=== PATIENT | female | born 1960 | race Caucasian/White ===

== ENCOUNTER 2016-04-26 16:23 | Inpatient (IN) | payer OTHER ==
[~2016-04-26] VITALS: Ht 167.6 cm; Wt 86.2 kg
[2016-04-26 18:58] LABS: BASO # 0.1 x10^3/uL (0.0-0.2); BASO % 0 % (0-3); EOS % 2 % (0-3); HEMATOCRIT 35.5 % (36.0-47.0); HEMOGLOBIN 11.9 g/dL (12.0-15.5); LYMPH # 3.4 x10^3/uL (1.0-4.8); LYMPH % 20 % (24-48); MEAN CORPUSCULAR HEMOGLOBIN 29 pg (25-35); MEAN CORPUSCULAR HGB CONC 33 g/dL (31-37); MEAN CORPUSCULAR VOLUME 88 fL (79-100); MONO % 5 % (0-9); NEUT % 72 % (31-73); PLATELET COUNT 289 x10^3/uL (140-400); RED BLOOD COUNT 4.05 x10^6/uL (3.50-5.40); RED CELL DISTRIBUTION WIDTH 12.6 % (11.5-14.5); WHITE BLOOD COUNT 16.8 x10^3/uL (4.0-11.0)
[2016-04-26 19:14] LABS: CALCIUM 9.6 mg/dL (8.5-10.1); CREATININE 0.9 mg/dL (0.6-1.0); GFR 64.8; POTASSIUM 3.7 mmol/L (3.5-5.1)
[2016-04-26] MEDS: IV NORMAL SALINE 1000ML BAG 1,000 ML IV SCH (19:15)
[2016-04-26] MEDS: ONDANSETRON PF 4 MG/2 ML VIAL. IV PRN ×2 (19:16→23:32)
--- NOTE | 2016-04-26 19:17 | PHYS DOC ---
Past Medical History Past Medical History: No Pertinent History Past Surgical History: Hysterectomy, Other Additional Past Surgical Histo: abdominalplasty Alcohol Use: None Drug Use: None Adult General Chief Complaint Chief Complaint: RECTAL BLEED HPI HPI 55-year-old female with a recent history of colonoscopy where they removed several polyps presents with a 2 day history of bright red blood per rectum. The colonoscopy was 5 or 6 days ago she developed some bloating 2 days after that and then active bleeding 2 days after that. She states she is not having any abdominal pain at this time. She does state that she became a little short of breath and diaphoretic at work today. [] Review of Systems Review of Systems Constitutional: Denies fever or chills [] Eyes: Denies change in visual acuity, redness, or eye pain [] HENT: Denies nasal congestion or sore throat [] Respiratory: Per history of present illness [] Cardiovascular: No additional information not addressed in HPI [] GI: Per history of present illness [] : Denies dysuria or hematuria [] Musculoskeletal: Denies back pain or joint pain [] Integument: Denies rash or skin lesions [] Neurologic: Denies headache, focal weakness or sensory changes [] Endocrine: Denies polyuria or polydipsia [] Current Medications Current Medications Allergies Allergies Physical Exam Physical Exam Constitutional: Well developed, well nourished, no acute distress, non-toxic appearance. [] HENT: Normocephalic, atraumatic, bilateral external ears normal, oropharynx moist, no oral exudates, nose normal. [] Eyes: PERRLA, EOMI, conjunctiva normal, no discharge. [] Neck: Normal range of motion, no tenderness, supple, no stridor. [] Cardiovascular:Heart rate regular rhythm, no murmur [] Lungs & Thorax: Bilateral breath sounds clear to auscultation [] Abdomen: Bowel sounds normal, soft, no tenderness, no masses, no pulsatile masses, she had a large bloody bowel movement. [] Skin: Warm, dry, no erythema, no rash, significant pallor. [] Back: No tenderness, no CVA tenderness. [] Extremities: No tenderness, no cyanosis, no clubbing, ROM intact, no edema. [] Neurologic: Alert and oriented X 3, normal motor function, normal sensory function, no focal deficits noted. [] Psychologic: Anxious [] Current Patient Data Vital Signs Vital Signs Date Time Temp Pulse Resp B/P Pulse Ox O2 Delivery O2 Flow Rate FiO2 04/26/16 18:50 104 18 124/73 96 04/26/16 18:18 97.8 Room Air 97.8 Lab Values Laboratory Tests Test 04/26/16 18:30 White Blood Count 16.8x10^3/uL (4.0-11.0) H Red Blood Count 4.05x10^6/uL (3.50-5.40) Hemoglobin 11.9g/dL (12.0-15.5) L Hematocrit 35.5% (36.0-47.0) L Mean Corpuscular Volume 88fL (79-100) Mean Corpuscular Hemoglobin 29pg (25-35) Mean Corpuscular Hemoglobin Concent 33g/dL (31-37) Red Cell Distribution Width 12.6% (11.5-14.5) Platelet Count 289x10^3/uL (140-400) Neutrophils (%) (Auto) 72% (31-73) Lymphocytes (%) (Auto) 20% (24-48) L Monocytes (%) (Auto) 5% (0-9) Eosinophils (%) (Auto) 2% (0-3) Basophils (%) (Auto) 0% (0-3) Neutrophils # (Auto) 12.1x10^3uL (1.8-7.7) H Lymphocytes # (Auto) 3.4x10^3/uL (1.0-4.8) Monocytes # (Auto) 0.8x10^3/uL (0.0-1.1) Eosinophils # (Auto) 0.4x10^3/uL (0.0-0.7) Basophils # (Auto) 0.1x10^3/uL (0.0-0.2) Prothrombin Time 13.6SEC (11.7-14.0) Prothrombin Time INR 1.1 (0.8-1.1) Sodium Level 142mmol/L (136-145) Potassium Level 3.7mmol/L (3.5-5.1) Chloride Level 104mmol/L (98-107) Carbon Dioxide Level 25mmol/L (21-32) Anion Gap 13 (6-14) Blood Urea Nitrogen 13mg/dL (7-20) Creatinine 0.9mg/dL (0.6-1.0) Estimated GFR (Cockcroft-Gault) 64.8 Glucose Level 135mg/dL (70-99) H Calcium Level 9.6mg/dL (8.5-10.1) Laboratory Tests 04/26/16 18:30 Laboratory Tests 04/26/16 18:30 EKG EKG [] Radiology/Procedures Radiology/Procedures [] Course & Med Decision Making Course & Med Decision Making Pertinent Labs and Imaging studies reviewed. (See chart for details) [ED course: Evaluation reveals a 55-year-old female in no significant distress but she does appear pale. I witnessed a large bloody bowel movement. We'll consult GI. Patient will be admitted to the hospital. Patient is in agreement with this plan.] Dragon Disclaimer Dragon Disclaimer This electronic medical record was generated, in whole or in part, using a voice recognition dictation system. Departure Departure Impression: Primary Impression: GI bleed Disposition: 09 ADMITTED INPATIENT Admitting Physician: Mehdi Lindsey Condition: GUARDED Referrals: ROGER BECERRA MD (PCP) Scripts No Active Prescriptions or Reported Meds Problem Qualifiers Primary Impression: GI bleed GI bleed type/associated pathology: unspecified gastrointestinal hemorrhage type Qualified Code: K92.2 - Gastrointestinal hemorrhage, unspecified NANDO MCCLAIN DO Apr 26, 2016 19:17
[2016-04-26 19:34] LABS: INR 1.1 (0.8-1.1); PROTHROMBIN TIME PATIENT 13.6 SEC (11.7-14.0)
--- NOTE | 2016-04-26 20:58 | ACF ---
Admission Forms Criteria GASTROINTESTINAL BLEEDING Clinical Indications for Inpatient Care (Place 'X' for any and all applicable criteria): Ongoing inpatient care may be indicated for gastrointestinal bleeding with ANY ONE of the following (4)(20)(21)(22)(23)(24): [X]I. Active bleeding (eg, fresh voluminous blood in emesis or nasogastric aspirate, or per rectum) [ ]II. Hemodynamic instability [ ]III. Anticoagulation therapy or coagulopathy ((eg, advanced liver disease, irreversible anticoagulation) [ ]IV. Ischemic colitis (22) [ ]V. Endoscopy showing arterial bleeding, adherent clot, nonbleeding visible vessel, varices, flat red spots, ulcer size greater than 2 cm, or portal hypertensive gastropathy [ ]. High-risk low platelet count [ ]VII. Anemia requiring inpatient care as indicated by ANY ONE of the following a)[ ] Cognitive impairment b)[ ] Syncope c)[ ] Heart failure d)[ ] Chest pain e)[ ] Dyspnea f)[ ] Other findings suggesting inadequate perfusion (eg, peripheral or myocardial ischemia, end organ dysfunction) [ ]VIII. High-risk low platelet count [ ]IX. Suspected variceal cause of bleeding as indicated by ANY ONE of the following(27)(28): a)[ ] Known varices b)[ ] Hepatomegaly or splenomegaly c)[ ] Ascites d)[ ] Jaundice or scleral icterus e)[ ] History of liver disease (eg, cirrhosis) f)[ ] Physical findings of portal hypertension (eg, caput medusa) g)[ ] Comorbid disorder indicating risk for portal vein thrombosis (eg , abdominal surgery, sepsis, shock, exchange transfusion, prior umbilical vein catheterization) Extended stay may be needed until ALL of the following are present(20)(38)(47): [ ]a) Hemodynamic stability [ ]b) No evidence of active bleeding (eg, stable Hematocrit) [ ]c) Platelet count, prothrombin time, and partial thromboplastin time acceptable for next level of care [ ]d) Surgical or other acute intervention not needed [ ]e) Oral hydration and diet tolerated The original [employer] content created by Al[employer] has been revised. The portions of the content which have been revised are identified through the use of italic text or in bold, and Alfonso Romero has neither reviewed nor approved the modified material. All other unmodified content is copyright [facility]. Please see references footnoted in the original [facility] edition 2016 Admission Criteria Met?: Yes JULIANO RAHMAN. Apr 26, 2016 20:58
[2016-04-26 22:15] VITALS: BP 102/76
[2016-04-26] MEDS ORDERED: HYDROCODONE/APAP 5/325MG TABLET. PO PRN (23:30)
[2016-04-26] MEDS ORDERED: ALBUTEROL SULFATE 2.5 MG/3 ML NEBU. NEB PRN (23:30)
[2016-04-26] MEDS ORDERED: ONDANSETRON PF 4 MG/2 ML VIAL. IV PRN (23:30)
[2016-04-26] MEDS ORDERED: hydrALAZINE 20 MG/ML VIAL. IVP PRN (23:30)
[2016-04-27 03:00] VITALS: BP 102/65
[2016-04-27] MEDS: IV NORMAL SALINE 1000ML BAG 1,000 ML IV SCH ×2 (04:09→08:04)
[2016-04-27 04:46] LABS: BASO # 0.1 x10^3/uL (0.0-0.2); BASO % 0 % (0-3); EOS % 3 % (0-3); HEMATOCRIT 30.7 % (36.0-47.0); HEMOGLOBIN 10.4 g/dL (12.0-15.5); LYMPH # 4.1 x10^3/uL (1.0-4.8); LYMPH % 29 % (24-48); MEAN CORPUSCULAR HEMOGLOBIN 29 pg (25-35); MEAN CORPUSCULAR HGB CONC 34 g/dL (31-37); MEAN CORPUSCULAR VOLUME 87 fL (79-100); MONO % 5 % (0-9); NEUT % 63 % (31-73); PLATELET COUNT 245 x10^3/uL (140-400); RED BLOOD COUNT 3.53 x10^6/uL (3.50-5.40); RED CELL DISTRIBUTION WIDTH 12.9 % (11.5-14.5); WHITE BLOOD COUNT 14.1 x10^3/uL (4.0-11.0)
[2016-04-27 04:54] LABS: CALCIUM 8.7 mg/dL (8.5-10.1); CREATININE 0.9 mg/dL (0.6-1.0); GFR 64.8; POTASSIUM 3.8 mmol/L (3.5-5.1)
[2016-04-27 07:00] VITALS: BP 92/50
--- NOTE | 2016-04-27 08:40 | PDOC2 ---
GI CONSULT Reason For Consult: GI Bleed HPI: HPI: 55 y/o female admitted through the ER w/ hematochezia. Recent colonoscopy as outpt (on 04/19/16) w/ Dr. Vences revealed: two 3-4mm polyps in the mid transverse colon and cecum, 25mm polyp in mid sigmoid colon (?villous adenoma - removed w/ hot snare, three hemostatic clips placed w/ resolution of bleeding), and internal hemorrhoids. Because of large polyp removal w/ clip placement, she kept to a liquid diet for about a day after her procedure before gradually advancing her diet. On 04/24, she noted significant abd bloating. She passed stool for the first time since colonoscopy and also passed a significant amount of bright red blood which continued throughout the night. She called Dr. Vences and was advised to again limit her diet which she did for another day. She did this and bleeding slowed/stopped. On 04/26, she ate some cream of rice in the morning. On that day, she started to "feel really funky" w/ sweats and some SOA, and bleeding started again. She had a few episodes of passing bright red blood, called Dr. Vences again, and was advised to come to the ER which another large blood bowel movement was witnessed. Bleeding has slowed since admission but she feels if she got out of bed and attempted to pass another stool, it would be bloody. Bloating comes and goes but it not as severe as it was over the weekend. Denies abd pain. Has had some nausea. Hgb was 14.9 in 01/2015. Today it is 10.4 (from 11.9 in the ER). KUB report is pending. For dysphagia, dyspepsia, and abnormal esophagram, EGD on 03/06/15 showed benign appearing esophageal stricture, reflux esophagitis (partly healed grade IV), gastric deformity (positive for H. pylori), and duodenal deformity suggestive of prior PUD. She was advised to take PPI which she did for awhile but stopped after intentional weight loss earlier this year (and resolution of upper GI symptoms). PMH: PMH: allergic rhinitis, GERD, abdominoplasty, hysterectomy (partial) FH: Family History: Cancer (lung) Social History: Smoke: Quit ALCOHOL: occassional Drugs: None ROS: GEN: sweats HEENT: Denies blurred vision, sore throat CV: Denies chest pain RESP: SOA GI: Per HPI : Denies hematuria, dysuria ENDO: intentional weight loss NEURO: "feels funky" MSK: Denies weakness, joint pain/swelling SKIN: Denies jaundice, pruritus VItals: Vitals: Vital Signs Date Time Temp Pulse Resp B/P Pulse Ox O2 Delivery O2 Flow Rate FiO2 04/27/16 07:00 98.6 71 18 92/50 94 Room Air 98.6 Labs: Labs: Laboratory Tests Test 04/26/16 18:30 04/27/16 03:00 White Blood Count 16.8x10^3/uL (4.0-11.0) 14.1x10^3/uL (4.0-11.0) Red Blood Count 4.05x10^6/uL (3.50-5.40) 3.53x10^6/uL (3.50-5.40) Hemoglobin 11.9g/dL (12.0-15.5) 10.4g/dL (12.0-15.5) Hematocrit 35.5% (36.0-47.0) 30.7% (36.0-47.0) Mean Corpuscular Volume 88fL (79-100) 87fL (79-100) Mean Corpuscular Hemoglobin 29pg (25-35) 29pg (25-35) Mean Corpuscular Hemoglobin Concent 33g/dL (31-37) 34g/dL (31-37) Red Cell Distribution Width 12.6% (11.5-14.5) 12.9% (11.5-14.5) Platelet Count 289x10^3/uL (140-400) 245x10^3/uL (140-400) Neutrophils (%) (Auto) 72% (31-73) 63% (31-73) Lymphocytes (%) (Auto) 20% (24-48) 29% (24-48) Monocytes (%) (Auto) 5% (0-9) 5% (0-9) Eosinophils (%) (Auto) 2% (0-3) 3% (0-3) Basophils (%) (Auto) 0% (0-3) 0% (0-3) Neutrophils # (Auto) 12.1x10^3uL (1.8-7.7) 8.8x10^3uL (1.8-7.7) Lymphocytes # (Auto) 3.4x10^3/uL (1.0-4.8) 4.1x10^3/uL (1.0-4.8) Monocytes # (Auto) 0.8x10^3/uL (0.0-1.1) 0.8x10^3/uL (0.0-1.1) Eosinophils # (Auto) 0.4x10^3/uL (0.0-0.7) 0.4x10^3/uL (0.0-0.7) Basophils # (Auto) 0.1x10^3/uL (0.0-0.2) 0.1x10^3/uL (0.0-0.2) Prothrombin Time 13.6SEC (11.7-14.0) Prothromb Time International Ratio 1.1 (0.8-1.1) Sodium Level 142mmol/L (136-145) 139mmol/L (136-145) Potassium Level 3.7mmol/L (3.5-5.1) 3.8mmol/L (3.5-5.1) Chloride Level 104mmol/L (98-107) 105mmol/L (98-107) Carbon Dioxide Level 25mmol/L (21-32) 27mmol/L (21-32) Anion Gap 13 (6-14) 7 (6-14) Blood Urea Nitrogen 13mg/dL (7-20) 16mg/dL (7-20) Creatinine 0.9mg/dL (0.6-1.0) 0.9mg/dL (0.6-1.0) Estimated GFR (Cockcroft-Gault) 64.8 64.8 Glucose Level 135mg/dL (70-99) 102mg/dL (70-99) Calcium Level 9.6mg/dL (8.5-10.1) 8.7mg/dL (8.5-10.1) Allergies: Coded Allergies: No Known Drug Allergies (Unverified , 04/26/16) Medications: Current Medications Medications (Trade) Dose Ordered Sig/Sharon Route PRN Reason Start Time Stop Time Status Last Admin Dose Admin Ondansetron HCl 4 mg 4 mg PRN Q8HRS PRN IV NAUSEA/VOMITING 04/26/16 19:15 04/26/16 23:33 DC 04/26/16 23:32 Sodium Chloride (Iv Sodium Chloride 0.9% 1000ml Bag) 1,000 ml @ 125 mls/hr Q8H IV 04/26/16 19:30 04/27/16 19:29 04/27/16 08:04 Imaging: Imaging: KUB PENDING PE: GEN: NAD, laying in bed HEENT: Atraumatic, PERRL LUNGS: CTAB HEART: RRR ABD: NABS, S/ND/NT EXTREMITY: No edema SKIN: No rashes, no jaundice NEURO/PSYCH: A & O 3 A/P: A/P: Hematochezia s/p large polypectomy w/ clips placed 04/19/16 -abd bloating, nausea -Hgb 10.4 (from 11.9) -- Colonoscopy this afternoon ~4:30 after prep. Orders in, d/w GI lab. DAVID BARLOW Apr 27, 2016 08:40
--- NOTE | 2016-04-27 08:45 | RAD ---
Indication: GI bleed. Time of exam 1910 hours. The bowel gas pattern is nonobstructed. There is moderate stool in the right colon. Small bowel is nondilated. A metallic density overlies the midline of the pelvis in the region of the rectum consistent with a foreign body, indeterminate. Impression: No acute feature seen. There is a foreign body located midline of the pelvis. Clinical correlation is recommended.
[2016-04-27] MEDS ORDERED: POLYETHYLENE GLYCOL 3350 238 GM POWDER PO ONE (09:00)
[2016-04-27] MEDS ORDERED: BISACODYL 5 MG TABLET.DR. PO PRN (09:00)
[2016-04-27] MEDS ORDERED: MAGNESIUM CITRATE 296 ML SOLUTION. PO ONE (09:00)
--- NOTE | 2016-04-27 09:43 | PDOC1 ---
History and Physical Past Medical History Past Medical History GERD, abdominoplasty, Family History Family History LUNG CANCER Social History Smoke: Quit ALCOHOL: occassional Drugs: None Current Problem List Problem List Problems Medical Problems: (1) GI bleed Status: Acute Current Medications Current Medications Current Medications Medications (Trade) Dose Ordered Sig/Sharon Start Time Stop Time Status Last Admin Dose Admin Acetaminophen (Tylenol) 325 mg PRN Q6HRS PRN 04/26/16 23:30 Acetaminophen/ Hydrocodone Bitart (Lortab 5/325) 1 tab PRN Q6HRS PRN 04/26/16 23:30 Albuterol Sulfate (Ventolin Neb Soln) 2.5 mg PRN Q4HRS PRN 04/26/16 23:30 Bisacodyl (Dulcolax Tab) 10 mg PRN DAILY PRN 04/27/16 09:00 Hydralazine HCl (Apresoline) 10 mg PRN Q4HRS PRN 04/26/16 23:30 Magnesium Citrate (Citroma) 296 ml 1X ONCE 04/27/16 09:00 04/27/16 09:06 DC 04/27/16 09:17 296 ML Ondansetron HCl (Zofran) 4 mg PRN Q8HRS PRN 04/26/16 23:30 Ondansetron HCl 4 mg 4 mg PRN Q8HRS PRN 04/26/16 19:15 04/26/16 23:33 DC 04/26/16 23:32 4 MG Polyethylene Glycol (miraLAX Powder BULK BOTTLE) 238 gm 1X ONCE 04/27/16 09:00 04/27/16 09:06 DC Sodium Chloride (Iv Sodium Chloride 0.9% 1000ml Bag) 1,000 ml @ 125 mls/hr Q8H 04/26/16 19:30 04/27/16 19:29 04/27/16 08:04 125 MLS/HR Allergies Allergies Allergies Coded Allergies Type Severity Reaction Last Updated Verified No Known Drug Allergies 04/26/16 No ROS Review of System CONSTITUTIONAL: No fever or chills EYES: No recent changes SKIN: No rash or itching CARDIOVASCULAR: No chest pain, syncope, palpitations, or edema RESPIRATORY: No SOB or cough GASTROINTESTINAL: No nausea, vomiting or abdominal pain BUT HEMATOCHEZIA NEUROLOGICAL: No headaches or weakness ENDOCRINE: No cold or heat intolerance GENITOURINARY: No urgency or frequency of urination MUSCULOSKELETAL: No back pain or joint pain LYMPHATICS: No enlarged lymph nodes PSYCHIATRIC: No anxiety or depression Physical Exam Physical Exam GEN.: No apparent distress. Alert and oriented. HEENT: Head is normocephalic, atraumatic NECK: Supple. LUNGS: Clear to auscultation. HEART: RRR, S1, S2 present. Peripheral pulses intact ABDOMEN: Soft, nontender. Positive bowel sounds. EXTREMITIES: Without any cyanosis. NEUROLOGIC: Normal speech, normal tone PSYCHIATRIC: Normal affect, normal mood. SKIN: No ulcerations Vitals Vitals Vital Signs Date Time Temp Pulse Resp B/P Pulse Ox O2 Delivery O2 Flow Rate FiO2 04/27/16 08:34 98 Room Air 04/27/16 07:00 98.6 71 18 92/50 98.6 Labs Labs Laboratory Tests Test 04/26/16 18:30 04/27/16 03:00 White Blood Count 16.8x10^3/uL (4.0-11.0) 14.1x10^3/uL (4.0-11.0) Red Blood Count 4.05x10^6/uL (3.50-5.40) 3.53x10^6/uL (3.50-5.40) Hemoglobin 11.9g/dL (12.0-15.5) 10.4g/dL (12.0-15.5) Hematocrit 35.5% (36.0-47.0) 30.7% (36.0-47.0) Mean Corpuscular Volume 88fL (79-100) 87fL (79-100) Mean Corpuscular Hemoglobin 29pg (25-35) 29pg (25-35) Mean Corpuscular Hemoglobin Concent 33g/dL (31-37) 34g/dL (31-37) Red Cell Distribution Width 12.6% (11.5-14.5) 12.9% (11.5-14.5) Platelet Count 289x10^3/uL (140-400) 245x10^3/uL (140-400) Neutrophils (%) (Auto) 72% (31-73) 63% (31-73) Lymphocytes (%) (Auto) 20% (24-48) 29% (24-48) Monocytes (%) (Auto) 5% (0-9) 5% (0-9) Eosinophils (%) (Auto) 2% (0-3) 3% (0-3) Basophils (%) (Auto) 0% (0-3) 0% (0-3) Neutrophils # (Auto) 12.1x10^3uL (1.8-7.7) 8.8x10^3uL (1.8-7.7) Lymphocytes # (Auto) 3.4x10^3/uL (1.0-4.8) 4.1x10^3/uL (1.0-4.8) Monocytes # (Auto) 0.8x10^3/uL (0.0-1.1) 0.8x10^3/uL (0.0-1.1) Eosinophils # (Auto) 0.4x10^3/uL (0.0-0.7) 0.4x10^3/uL (0.0-0.7) Basophils # (Auto) 0.1x10^3/uL (0.0-0.2) 0.1x10^3/uL (0.0-0.2) Prothrombin Time 13.6SEC (11.7-14.0) Prothromb Time International Ratio 1.1 (0.8-1.1) Sodium Level 142mmol/L (136-145) 139mmol/L (136-145) Potassium Level 3.7mmol/L (3.5-5.1) 3.8mmol/L (3.5-5.1) Chloride Level 104mmol/L (98-107) 105mmol/L (98-107) Carbon Dioxide Level 25mmol/L (21-32) 27mmol/L (21-32) Anion Gap 13 (6-14) 7 (6-14) Blood Urea Nitrogen 13mg/dL (7-20) 16mg/dL (7-20) Creatinine 0.9mg/dL (0.6-1.0) 0.9mg/dL (0.6-1.0) Estimated GFR (Cockcroft-Gault) 64.8 64.8 Glucose Level 135mg/dL (70-99) 102mg/dL (70-99) Calcium Level 9.6mg/dL (8.5-10.1) 8.7mg/dL (8.5-10.1) Laboratory Tests Test 04/26/16 18:30 04/27/16 03:00 White Blood Count 16.8x10^3/uL (4.0-11.0) 14.1x10^3/uL (4.0-11.0) Red Blood Count 4.05x10^6/uL (3.50-5.40) 3.53x10^6/uL (3.50-5.40) Hemoglobin 11.9g/dL (12.0-15.5) 10.4g/dL (12.0-15.5) Hematocrit 35.5% (36.0-47.0) 30.7% (36.0-47.0) Mean Corpuscular Volume 88fL (79-100) 87fL (79-100) Mean Corpuscular Hemoglobin 29pg (25-35) 29pg (25-35) Mean Corpuscular Hemoglobin Concent 33g/dL (31-37) 34g/dL (31-37) Red Cell Distribution Width 12.6% (11.5-14.5) 12.9% (11.5-14.5) Platelet Count 289x10^3/uL (140-400) 245x10^3/uL (140-400) Neutrophils (%) (Auto) 72% (31-73) 63% (31-73) Lymphocytes (%) (Auto) 20% (24-48) 29% (24-48) Monocytes (%) (Auto) 5% (0-9) 5% (0-9) Eosinophils (%) (Auto) 2% (0-3) 3% (0-3) Basophils (%) (Auto) 0% (0-3) 0% (0-3) Neutrophils # (Auto) 12.1x10^3uL (1.8-7.7) 8.8x10^3uL (1.8-7.7) Lymphocytes # (Auto) 3.4x10^3/uL (1.0-4.8) 4.1x10^3/uL (1.0-4.8) Monocytes # (Auto) 0.8x10^3/uL (0.0-1.1) 0.8x10^3/uL (0.0-1.1) Eosinophils # (Auto) 0.4x10^3/uL (0.0-0.7) 0.4x10^3/uL (0.0-0.7) Basophils # (Auto) 0.1x10^3/uL (0.0-0.2) 0.1x10^3/uL (0.0-0.2) Prothrombin Time 13.6SEC (11.7-14.0) Prothromb Time International Ratio 1.1 (0.8-1.1) Sodium Level 142mmol/L (136-145) 139mmol/L (136-145) Potassium Level 3.7mmol/L (3.5-5.1) 3.8mmol/L (3.5-5.1) Chloride Level 104mmol/L (98-107) 105mmol/L (98-107) Carbon Dioxide Level 25mmol/L (21-32) 27mmol/L (21-32) Anion Gap 13 (6-14) 7 (6-14) Blood Urea Nitrogen 13mg/dL (7-20) 16mg/dL (7-20) Creatinine 0.9mg/dL (0.6-1.0) 0.9mg/dL (0.6-1.0) Estimated GFR (Cockcroft-Gault) 64.8 64.8 Glucose Level 135mg/dL (70-99) 102mg/dL (70-99) Calcium Level 9.6mg/dL (8.5-10.1) 8.7mg/dL (8.5-10.1) VTE Prophylaxis Ordered VTE Prophylaxis Devices: Yes VTE Pharmacological Prophylaxi: No NISHANT REBOLLAR MD Apr 27, 2016 09:42
[2016-04-27 11:00] VITALS: BP 111/74
[2016-04-27 15:00] VITALS: BP 104/60
[2016-04-27] MEDS ORDERED: IV RINGERS,LACTATED 1000ML 1,000 ML IV ONE (16:00)
[2016-04-27] MEDS ORDERED: FENTANYL PF 100 MCG/2 ML VIAL. ONE ×2 (16:49→17:01)
[2016-04-27] MEDS ORDERED: MIDAZOLAM HCL/PF 5 MG/5 ML VIAL ONE ×2 (16:49→17:00)
[2016-04-27] MEDS ORDERED: MIDAZOLAM HCL/PF 5 MG/5 ML VIAL IV ONE ×8 (16:52→17:10)
[2016-04-27] MEDS ORDERED: FENTANYL PF 100 MCG/2 ML VIAL. IV ONE ×3 (16:54→17:04)
--- NOTE | 2016-04-27 17:36 | HP ---
ADMIT DATE: 04/26/2016 CHIEF COMPLAINT: GI bleeding. HISTORY OF PRESENT ILLNESS: A 55-year-old female patient with recent history of colonoscopy, presented to the ER with complaints of hematochezia. The patient had a colonoscopy by Dr. Vences on April 19. At that time, he had mid transverse colon polyps removed for questionable villous adenoma and also she was diagnosed internal hemorrhoids. The patient has been noticing some bright red blood; however, yesterday, she called Dr. Vences who made her to come to the ER. The patient denies any abdominal pain, nausea or vomiting, and currently, she is in preparation for colonoscopy. Her recent hemoglobin was 10.4, which has been dropped from 14.9. PAST MEDICAL HISTORY, REVIEW OF SYSTEMS, AND PHYSICAL EXAMINATION: Please see my electronic H and P. LABORATORY FINDINGS: WBC 16.8, hemoglobin is 11.9, MCV is 88, and platelets are 289. Chemistry: Sodium 142, potassium is 3.7, chloride is 104, carbon dioxide 25, anion gap is 13, creatinine is 0.9. INR is 1.1. IMAGING STUDIES: KUB, no acute clinical seen. ASSESSMENT: Hematochezia with recent polypectomy and clips placed on April 19. PLAN: 1. Monitor hemoglobin, current hemoglobin is 10.4, dropped from 11.9. Continue mild IV hydration. Keep her n.p.o. and Dr. Vences has been consulted and anticipated colonoscopy this evening. 2. P.r.n. Zofran for nausea. NISHANT REBOLLAR MD DR: BELKIS/melonie JOB#: [id number] / [id number] JATINDER
[2016-04-27] MEDS ORDERED: EPINEPHRINE 1 MG/10 ML DISP.SYRIN. ONE (17:37)
--- NOTE | 2016-04-27 17:37 | PDOC4 ---
PROCEDURE Procedure Colonoscopy/epi injection/hemostatic clipping. Indcation: delayed bleeding post-polypectomy (~1 week). Meds: Fentanyl 125mcg iv, versed 8mg iv, all in divided doses. Findings: KATARZYNA: normal. Scope advanced to cecum. Mucosa normal. No diverticular disease. Dilute blood throughout, suctioned/washed. In distal sigmoid, broad stalk identified with apical ulcer and one clip remaining from the 3 placed last week. No clot or active bleeding. Stalk injected with 1 cc epi and 2 clips placed on the stalk. Just distal to the stalk were 2 dislodged clips in the lumen. Retroflex showed internal hemorrhoids. Tolerated well. IMP: Probable post-polypectomy bleed, s/p epi/clipping. Internal hemorrhoids. REC: Clears OK Observe for recurrent bleeding. AM hemoglobin. If meaningful rebleeding, IR to see re: embolize. Thanks. DIANNA FIERRO MD Apr 27, 2016 17:37
[2016-04-27 19:16] VITALS: BP 99/51
[2016-04-27] MEDS: ACETAMINOPHEN 325 MG TABLET. PO PRN (22:02)
[2016-04-27 23:00] VITALS: BP 97/67
[2016-04-28 03:00] VITALS: BP 92/64
[2016-04-28] MEDS: ACETAMINOPHEN 325 MG TABLET. PO PRN (04:08)
[2016-04-28 04:52] LABS: HEMATOCRIT 27.2 % (36.0-47.0); RED BLOOD COUNT 3.08 x10^6/uL (3.50-5.40); RED CELL DISTRIBUTION WIDTH 12.8 % (11.5-14.5); WHITE BLOOD COUNT 8.4 x10^3/uL (4.0-11.0)
[2016-04-28 05:43] LABS: CALCIUM 8.3 mg/dL (8.5-10.1); CREATININE 0.7 mg/dL (0.6-1.0); GFR 86.6; POTASSIUM 3.7 mmol/L (3.5-5.1)
[2016-04-28 07:00] VITALS: BP 130/79
--- NOTE | 2016-04-28 10:37 | PDOC ---
PROGRESS NOTES Chief Complaint Chief Complaint Probable post-polypectomy bleed, s/p epi/clipping. Internal hemorrhoids. Plan Monitor hemoglobin advance diet anticipated DC today Vitals Vitals Vital Signs Date Time Temp Pulse Resp B/P Pulse Ox O2 Delivery O2 Flow Rate FiO2 04/28/16 08:00 Room Air 04/28/16 07:00 98.5 75 18 130/79 97 98.5 04/27/16 17:32 5 Physical Exam General: Alert, Oriented X3 Heart: Normal S1, Normal S2 Lungs: Clear Abdomen: Normal bowel sounds, Soft Labs LABS Laboratory Tests Test 04/28/16 03:24 White Blood Count 8.4x10^3/uL (4.0-11.0) Red Blood Count 3.08x10^6/uL (3.50-5.40) Hemoglobin 9.0g/dL (12.0-15.5) Hematocrit 27.2% (36.0-47.0) Mean Corpuscular Volume 88fL (79-100) Mean Corpuscular Hemoglobin 29pg (25-35) Mean Corpuscular Hemoglobin Concent 33g/dL (31-37) Red Cell Distribution Width 12.8% (11.5-14.5) Platelet Count 206x10^3/uL (140-400) Sodium Level 143mmol/L (136-145) Potassium Level 3.7mmol/L (3.5-5.1) Chloride Level 109mmol/L (98-107) Carbon Dioxide Level 27mmol/L (21-32) Anion Gap 7 (6-14) Blood Urea Nitrogen 9mg/dL (7-20) Creatinine 0.7mg/dL (0.6-1.0) Estimated GFR (Cockcroft-Gault) 86.6 Glucose Level 99mg/dL (70-99) Calcium Level 8.3mg/dL (8.5-10.1) Assessment and Plan Assessmemt and Plan Problems Medical Problems: (1) GI bleed Status: Acute Problems: Comment Review of Relevant I have reviewed the following items fay (where applicable) has been applied. Labs Laboratory Tests Test 04/26/16 18:30 04/27/16 03:00 04/28/16 03:24 White Blood Count 16.8x10^3/uL (4.0-11.0) 14.1x10^3/uL (4.0-11.0) 8.4x10^3/uL (4.0-11.0) Red Blood Count 4.05x10^6/uL (3.50-5.40) 3.53x10^6/uL (3.50-5.40) 3.08x10^6/uL (3.50-5.40) Hemoglobin 11.9g/dL (12.0-15.5) 10.4g/dL (12.0-15.5) 9.0g/dL (12.0-15.5) Hematocrit 35.5% (36.0-47.0) 30.7% (36.0-47.0) 27.2% (36.0-47.0) Mean Corpuscular Volume 88fL (79-100) 87fL (79-100) 88fL (79-100) Mean Corpuscular Hemoglobin 29pg (25-35) 29pg (25-35) 29pg (25-35) Mean Corpuscular Hemoglobin Concent 33g/dL (31-37) 34g/dL (31-37) 33g/dL (31-37) Red Cell Distribution Width 12.6% (11.5-14.5) 12.9% (11.5-14.5) 12.8% (11.5-14.5) Platelet Count 289x10^3/uL (140-400) 245x10^3/uL (140-400) 206x10^3/uL (140-400) Neutrophils (%) (Auto) 72% (31-73) 63% (31-73) Lymphocytes (%) (Auto) 20% (24-48) 29% (24-48) Monocytes (%) (Auto) 5% (0-9) 5% (0-9) Eosinophils (%) (Auto) 2% (0-3) 3% (0-3) Basophils (%) (Auto) 0% (0-3) 0% (0-3) Neutrophils # (Auto) 12.1x10^3uL (1.8-7.7) 8.8x10^3uL (1.8-7.7) Lymphocytes # (Auto) 3.4x10^3/uL (1.0-4.8) 4.1x10^3/uL (1.0-4.8) Monocytes # (Auto) 0.8x10^3/uL (0.0-1.1) 0.8x10^3/uL (0.0-1.1) Eosinophils # (Auto) 0.4x10^3/uL (0.0-0.7) 0.4x10^3/uL (0.0-0.7) Basophils # (Auto) 0.1x10^3/uL (0.0-0.2) 0.1x10^3/uL (0.0-0.2) Prothrombin Time 13.6SEC (11.7-14.0) Prothromb Time International Ratio 1.1 (0.8-1.1) Sodium Level 142mmol/L (136-145) 139mmol/L (136-145) 143mmol/L (136-145) Potassium Level 3.7mmol/L (3.5-5.1) 3.8mmol/L (3.5-5.1) 3.7mmol/L (3.5-5.1) Chloride Level 104mmol/L (98-107) 105mmol/L (98-107) 109mmol/L (98-107) Carbon Dioxide Level 25mmol/L (21-32) 27mmol/L (21-32) 27mmol/L (21-32) Anion Gap 13 (6-14) 7 (6-14) 7 (6-14) Blood Urea Nitrogen 13mg/dL (7-20) 16mg/dL (7-20) 9mg/dL (7-20) Creatinine 0.9mg/dL (0.6-1.0) 0.9mg/dL (0.6-1.0) 0.7mg/dL (0.6-1.0) Estimated GFR (Cockcroft-Gault) 64.8 64.8 86.6 Glucose Level 135mg/dL (70-99) 102mg/dL (70-99) 99mg/dL (70-99) Calcium Level 9.6mg/dL (8.5-10.1) 8.7mg/dL (8.5-10.1) 8.3mg/dL (8.5-10.1) Laboratory Tests Test 04/28/16 03:24 White Blood Count 8.4x10^3/uL (4.0-11.0) Red Blood Count 3.08x10^6/uL (3.50-5.40) Hemoglobin 9.0g/dL (12.0-15.5) Hematocrit 27.2% (36.0-47.0) Mean Corpuscular Volume 88fL (79-100) Mean Corpuscular Hemoglobin 29pg (25-35) Mean Corpuscular Hemoglobin Concent 33g/dL (31-37) Red Cell Distribution Width 12.8% (11.5-14.5) Platelet Count 206x10^3/uL (140-400) Sodium Level 143mmol/L (136-145) Potassium Level 3.7mmol/L (3.5-5.1) Chloride Level 109mmol/L (98-107) Carbon Dioxide Level 27mmol/L (21-32) Anion Gap 7 (6-14) Blood Urea Nitrogen 9mg/dL (7-20) Creatinine 0.7mg/dL (0.6-1.0) Estimated GFR (Cockcroft-Gault) 86.6 Glucose Level 99mg/dL (70-99) Calcium Level 8.3mg/dL (8.5-10.1) Medications Current Medications Ondansetron HCl 4 mg 4 mg PRN Q8HRS PRN IV NAUSEA/VOMITING Last administered on 04/26/16 23:32; Start 04/26/16 at 19:15; Stop 04/26/16 at 23:33; Status DC Sodium Chloride (Iv Sodium Chloride 0.9% 1000ml Bag) 1,000 ml @ 125 mls/hr Q8H IV Last administered on 04/27/16 08:04; Start 04/26/16 at 19:30; Stop at 19:29; Status DC Acetaminophen (Tylenol) 325 mg PRN Q6HRS PRN PO MILD PAIN / TEMP Last administered on 04/28/16 04:08; Start 04/26/16 at 23:30 Acetaminophen/ Hydrocodone Bitart (Lortab 5/325) 1 tab PRN Q6HRS PRN PO MODERATE TO SEVERE PAIN; Start 04/26/16 at 23:30 Hydralazine HCl (Apresoline) 10 mg PRN Q4HRS PRN IVP ELEVATED BP, SEE COMMENTS ; Start 04/26/16 at 23:30 Ondansetron HCl (Zofran) 4 mg PRN Q8HRS PRN IV NAUSEA/VOMITING Last administered on 04/27/16 22:00; Start 04/26/16 at 23:30 Albuterol Sulfate (Ventolin Neb Soln) 2.5 mg PRN Q4HRS PRN NEB SHORTNESS OF BREATH; Start 04/26/16 at 23:30 Magnesium Citrate (Citroma) 296 ml 1X ONCE PO Last administered on 04/27/16 09:17; Start 04/27/16 at 09:00; Stop 04/27/16 at 09:06; Status DC Polyethylene Glycol (miraLAX Powder BULK BOTTLE) 238 gm 1X ONCE PO Last administered on 04/27/16 11:05; Start 04/27/16 at 09:00; Stop 04/27/16 at 09:06 ; Status DC Bisacodyl 10 mg 10 mg PRN DAILY PRN PO CONSTIPATION Last administered on 11:06; Start 04/27/16 at 09:00 Lactated Ringer's (Iv Lactated Ringers) 1,000 ml @ 75 mls/hr 1X ONCE IV Last administered on 04/27/16 16:08; Start 04/27/16 at 16:00; Stop 04/28/16 at 05:19 ; Status DC Midazolam HCl (Versed) 5 mg STK-MED ONCE .ROUTE ; Start 04/27/16 at 16:49; Stop 04/27/16 at 16:50; Status DC Fentanyl Citrate (Fentanyl 2ml Vial) 100 mcg STK-MED ONCE .ROUTE Last administered on 04/27/16 16:52; Start 04/27/16 at 16:49; Stop 04/27/16 at 16:50 ; Status DC Midazolam HCl (Versed) 5 mg STK-MED ONCE .ROUTE ; Start 04/27/16 at 17:00; Stop 04/27/16 at 17:01; Status DC Fentanyl Citrate (Fentanyl 2ml Vial) 100 mcg STK-MED ONCE .ROUTE ; Start at 17:01; Stop 04/27/16 at 17:02; Status DC Midazolam HCl (Versed) 5 mg STK-MED ONCE IV Last administered on 04/27/16 16: 52; Start 04/27/16 at 16:52; Stop 04/27/16 at 17:17; Status DC Midazolam HCl (Versed) 5 mg STK-MED ONCE IV Last administered on 04/27/16 16: 54; Start 04/27/16 at 16:54; Stop 04/27/16 at 17:17; Status DC Fentanyl Citrate (Fentanyl 2ml Vial) 100 mcg STK-MED ONCE IV Last administered on 04/27/16 16:54; Start 04/27/16 at 16:54; Stop 04/27/16 at 17:17; Status DC Midazolam HCl (Versed) 5 mg STK-MED ONCE IV Last administered on 04/27/16 16: 55; Start 04/27/16 at 16:55; Stop 04/27/16 at 17:17; Status DC Midazolam HCl (Versed) 5 mg STK-MED ONCE IV Last administered on 04/27/16 16: 56; Start 04/27/16 at 16:56; Stop 04/27/16 at 17:17; Status DC Fentanyl Citrate (Fentanyl 2ml Vial) 100 mcg STK-MED ONCE IV Last administered on 04/27/16 16:58; Start 04/27/16 at 16:58; Stop 04/27/16 at 17:17; Status DC Midazolam HCl (Versed) 5 mg STK-MED ONCE IV Last administered on 04/27/16 16: 58; Start 04/27/16 at 16:58; Stop 04/27/16 at 17:17; Status DC Fentanyl Citrate (Fentanyl 2ml Vial) 100 mcg STK-MED ONCE IV Last administered on 04/27/16 17:04; Start 04/27/16 at 17:04; Stop 04/27/16 at 17:17; Status DC Midazolam HCl (Versed) 5 mg STK-MED ONCE IV Last administered on 04/27/16 17: 04; Start 04/27/16 at 17:04; Stop 04/27/16 at 17:17; Status DC Midazolam HCl (Versed) 5 mg STK-MED ONCE IV Last administered on 04/27/16 17: 08; Start 04/27/16 at 17:08; Stop 04/27/16 at 17:17; Status DC Midazolam HCl (Versed) 5 mg STK-MED ONCE IV Last administered on 04/27/16t 17: 10; Start 04/27/16 at 17:10; Stop 04/27/16 at 17:17; Status DC Epinephrine HCl 1 mg STK-MED ONCE .ROUTE ; Start 04/27/16 at 17:37; Stop at 17:38; Status DC Vitals/I & O Vital Sign - Last 24 Hours 04/27/16 04/27/16 04/27/16 04/27/16 11:00 15:00 15:53 16:09 Temp 98.5 97.5 97.4 98.5 97.5 97.4 Pulse 85 88 84 Resp 18 18 20 B/P 111/74 104/60 Pulse Ox 99 99 100 O2 Delivery Room Air Room Air Room Air 04/27/16 04/27/16 04/27/16 04/27/16 16:52 16:54 16:55 16:57 Pulse 86 84 86 94 Resp 18 20 18 18 Pulse Ox 100 99 100 100 O2 Delivery Nasal Cannula Nasal Cannula Nasal Cannula Nasal Cannula O2 Flow Rate 4.0 4.0 4.0 4.0 04/27/16 04/27/16 04/27/16 04/27/16 16:59 17:11 17:15 17:19 Pulse 82 80 80 82 Resp 18 18 18 18 Pulse Ox 100 100 100 100 O2 Delivery Nasal Cannula Nasal Cannula Nasal Cannula O2 Flow Rate 4.0 4.0 4.0 4.0 04/27/16 04/27/16 04/27/16 04/28/16 17:32 19:16 20:00 03:00 Temp 98.5 98.8 98.5 98.8 Pulse 81 82 94 Resp 18 18 18 B/P 108/54 99/51 92/64 Pulse Ox 100 95 98 O2 Delivery Nasal Cannula Room Air Room Air Room Air O2 Flow Rate 5 04/28/16 04/28/16 07:00 08:00 Temp 98.5 98.5 Pulse 75 Resp 18 B/P 130/79 Pulse Ox 97 O2 Delivery Room Air Intake and Output 104/27/16 04/28/16 15:00 23:00 07:00 Intake Total 3900 ml 120 ml Balance 3900 ml 120 ml NISHANT REBOLLAR MD Apr 28, 2016 10:37
[2016-04-28 10:49] VITALS: BP 84/52
[2016-04-28 11:27] LABS: HEMATOCRIT 26.9 % (36.0-47.0); RED BLOOD COUNT 3.02 x10^6/uL (3.50-5.40); RED CELL DISTRIBUTION WIDTH 12.5 % (11.5-14.5); WHITE BLOOD COUNT 9.1 x10^3/uL (4.0-11.0)
--- NOTE | 2016-04-28 11:56 | PDOC ---
Subjective: Subjective: Feeling better (not "funky" anymore), no BMs, no bleeding. Wants to eat and DC. Objective: Vital Signs: Vital Signs Date Time Temp Pulse Resp B/P Pulse Ox O2 Delivery O2 Flow Rate FiO2 04/28/16 10:49 98.3 80 18 84/52 96 Room Air 98.3 04/27/16 17:32 5 Labs: Laboratory Tests Test 04/28/16 03:24 04/28/16 11:00 White Blood Count 8.4x10^3/uL 9.1x10^3/uL Red Blood Count 3.08x10^6/uL 3.02x10^6/uL Hemoglobin 9.0g/dL 9.0g/dL Hematocrit 27.2% 26.9% Mean Corpuscular Volume 88fL 89fL Mean Corpuscular Hemoglobin 29pg 30pg Mean Corpuscular Hemoglobin Concent 33g/dL 33g/dL Red Cell Distribution Width 12.8% 12.5% Platelet Count 206x10^3/uL 212x10^3/uL Sodium Level 143mmol/L Potassium Level 3.7mmol/L Chloride Level 109mmol/L Carbon Dioxide Level 27mmol/L Anion Gap 7 Blood Urea Nitrogen 9mg/dL Creatinine 0.7mg/dL Estimated GFR (Cockcroft-Gault) 86.6 Glucose Level 99mg/dL Calcium Level 8.3mg/dL Imaging: Colonoscopy 04/27/16: In distal sigmoid, broad stalk identified with apical ulcer and one clip remaining from the 3 placed last week. No clot or active bleeding. Stalk injected with 1 cc epi and 2 clips placed on the stalk. Just distal to the stalk were 2 dislodged clips in the lumen. Retroflex showed internal hemorrhoids. PE: GEN: NAD LUNGS: CTAB HEART: RRR ABD: NABS, S/ND, maybe a little LLQ discomfort NEURO/PSYCH: A & O 3 A/P: Hematochezia - resolved -s/p large polypectomy w/ clips placed 04/19/16, s/p epi and clipping 04/27 -- Advance diet - d/w RN, ordered. Okay to DC per GI if no bleeding. DAVID BARLOW Apr 28, 2016 11:56
--- NOTE | 2016-05-05 22:58 | DS ---
DATE OF DISCHARGE: 04/28/2016 DISCHARGE DIAGNOSES: 1. Status post hematochezia due to post-polypectomy bleed, status post epi injections and clippings done on April [address] Vences and also she had clips placed on April [address] Vences. 2. Anemia, no active bleeding, stable, at 9 gm/dl BRIEF HOSPITAL COURSE: A 55-year-old female patient admitted to the hospital for post-polypectomy, clipping hematochezia. She had a recent clipping done by Dr. Vences on April 19. Reportedly after that, she noted to have some more bleeding from hematochezia. She was admitted to the hospital for monitoring of hematochezia. Dr. Vences was reconsulted and he did a repeat colonoscopy and she had epi injections and clipping. Post-procedure, she did tolerate diet very well, no symptoms noted and today, she deemed clinically stable enough to go home and follow up with Dr. Vences as scheduled. DISCHARGE PHYSICAL EXAMINATION: GENERAL: Alert, oriented x 3. HEART: S1, S2 present. LUNGS: Clear to auscultation. ABDOMEN: Soft, nontender, no organomegaly. EXTREMITIES: No edema. DISCHARGE DISPOSITION: Home. DISCHARGE CONDITION: Stable. FOLLOWUP: With Dr. Vences as needed. Total time spent for discharge is 31 minutes for patient education, counseling, coordination of care, and physical exam. NISHANT REBOLLAR MD DR: BELKIS/melonie JOB#: [id number] / [id number] JATINDER
== END 2016-04-28 13:45 | disposition home or self-care (01) | DRG 909 ==
LOC: ER 16:23 → 6 SOUTH 19:12
PROVIDERS: ADMIT Internal Medicine; ATTEND Internal Medicine
PROC: 0DQN8ZZ Repair Sigmoid Colon, Via Natural or Artificial Opening Endoscopic (ICD-10-PCS; 2016-04-27)
PROC: 0W3P8ZZ Control Bleeding in Gastrointestinal Tract, Via Natural or Artificial Opening Endoscopic (ICD-10-PCS; 2016-04-27)
PROC: 0DJD8ZZ Inspection of Lower Intestinal Tract, Via Natural or Artificial Opening Endoscopic (ICD-10-PCS; principal; 2016-04-27 17:00)
PROC: 3E0H8GC Introduction of Other Therapeutic Substance into Lower GI, Via Natural or Artificial Opening Endoscopic (ICD-10-PCS; 2016-04-27 17:00)
DX: K91.840 Postprocedural hemorrhage of a digestive system organ or structure following a digestive system procedure (principal); K64.8 Other hemorrhoids; J30.9 Allergic rhinitis, unspecified; K21.0 Gastro-esophageal reflux disease with esophagitis; K22.2 Esophageal obstruction; Y83.8 Other surgical procedures as the cause of abnormal reaction of the patient, or of later complication, without mention of misadventure at the time of the procedure; Z80.1 Family history of malignant neoplasm of trachea, bronchus and lung; Z87.11 Personal history of peptic ulcer disease; Z90.710 Acquired absence of both cervix and uterus; Z98.890 Other specified postprocedural states
CPT/HCPCS: 36415; 74000; 80048; 85027; 85610; 94250; 94760; J0171; J2250; J2405; J3010; J7030; J7120; 99285-25

== ENCOUNTER → 2020-09-28 | Outpatient (CLI) | payer OTHER ==
[2020-09-28 09:15] LABS: BASO # 0.1 x10^3/uL (0.0-0.2); BASO % 1 % (0-3); EOS # 0.2 x10^3/uL (0.0-0.7); EOS % 1 % (0-3); HEMATOCRIT 45.2 % (36.0-47.0); HEMOGLOBIN 15.1 g/dL (12.0-15.5); LYMPH # 11.2 x10^3/uL (1.0-4.8); LYMPH % 66 % (24-48); MEAN CORPUSCULAR HEMOGLOBIN 31 pg (25-35); MEAN CORPUSCULAR HGB CONC 33 g/dL (31-37); MEAN CORPUSCULAR VOLUME 93 fL (79-100); MONO # 0.5 x10^3/uL (0.0-1.1); MONO % 3 % (0-9); NEUT # 4.9 x10^3/uL (1.8-7.7); NEUT % 29 % (31-73); PLATELET COUNT 213 x10^3/uL (140-400); RED BLOOD COUNT 4.88 x10^6/uL (3.50-5.40); RED CELL DISTRIBUTION WIDTH 13.1 % (11.5-14.5)
[2020-09-28 09:27] LABS: CALCIUM 9.3 mg/dL (8.5-10.1); CREATININE 0.8 mg/dL (0.6-1.0); GFR 73.2; POTASSIUM 4.1 mmol/L (3.5-5.1)
[2020-09-28 09:35] LABS: ALBUMIN 3.9 g/dL (3.4-5.0); ALBUMIN/GLOBULIN RATIO 1.4 (1.0-1.7); C-REACTIVE PROTEIN 2.4 mg/L (0-3.3); TOTAL BILIRUBIN 0.4 mg/dL (0.2-1.0); TOTAL PROTEIN 6.6 g/dL (6.4-8.2)
[2020-09-28 10:00] LABS: PLT ESTIMATE ADEQUATE (ADEQUATE)
== END ==
LOC: ONCLAB 08:42
PROVIDERS: ATTEND Internal Medicine Hematology & Oncology
DX: D72.820 Lymphocytosis (symptomatic) (principal)
CPT/HCPCS: 36415; 80053; 85025; 86140; 88184; 88185